=== PATIENT | female | born 1975 | race Caucasian/White ===

== ENCOUNTER 2018-11-27 16:31 | Outpatient (CLI) | payer BC ==
--- NOTE | 2018-11-28 08:19 | Mammography Report ---
Reason: SCREENING MAMMO Procedure Date: 11/27/2018 Accession Number: [id number] / [id number] Procedure: [facility] - Screening Mammo w/Federcio CPT Code: FULL RESULT: EXAM: Screening Mammo w/Federico DATE: 11/27/2018 5:15 PM CLINICAL HISTORY: Screening encounter. Baseline examination. TECHNIQUE: (B) - Bilateral CC, laterally exaggerated CC, MLO views were obtained. COMPARISON: None PARENCHYMAL PATTERN: (D) - The breast(s) demonstrate(s) heterogeneously dense fibroglandular parenchyma. FINDINGS: There are no suspicious masses, calcifications, or areas of distortion. IMPRESSION: Negative examination. BI-RADS category 1. RECOMMENDATION: (ANNUAL) - Recommend routine annual screening mammography. BI-RADS CATEGORY: (1) - Negative. STANDARD QUALIFYING STATEMENTS: 1. This examination was not reviewed with the aid of Computer-Aided Detection (CAD). 2. A negative or benign imaging report should not preclude biopsy if clinically suspicious findings are present. 3. Dense breasts may obscure an underlying neoplasm. 4. This examination was reviewed with the aid of 3D breast imaging (tomosynthesis).
== END 2018-11-27 16:32 | disposition home or self-care (01) ==
LOC: DI 16:31
DX: Z12.31 Encounter for screening mammogram for malignant neoplasm of breast (principal)
CPT/HCPCS: 77063; 77067